=== PATIENT | male | born 1990 | race African-American/Black ===

== ENCOUNTER 2017-03-02 20:09 | Emergency (ER) | payer OTHER ==
[2017-03-02 21:00] LABS: URINE SOURCE CLEAN CATCH
[2017-03-02 21:06] LABS: URINE APPEARANCE CLEAR; URINE BILIRUBIN NEG (NEG); URINE BLOOD NEG (NEG); URINE COLOR DK YELLOW; URINE GLUCOSE NEG (NEG); URINE KETONE TRACE (NEG); URINE LEUKOCYTE ESTERASE 1+ (NEG); URINE NITRATE NEG (NEG); URINE PROTEIN NEG (NEG); URINE SPECIFIC GRAVITY 1.031 (1.003-1.035)
[2017-03-02 21:08] LABS: CULTURE INDICATED? YES; URINE BACTERIA AUWI NEG (NEGATIVE); URINE SQUAMOUS EPITHELIAL CELL NONE SEEN /[HPF]; UWBCS1 AUWI 25-50 (0-5)
[2017-03-02 21:19] LABS: U HYALINE CASTS AUWI 0-2 /[LPF]; URINE MUCUS PRESENT
[2017-03-05 01:27] LABS: CHLAMYDIA TRACH Not Detected (Not Detected); N GONOR Not Detected (Not Detected)
== END 2017-03-02 21:25 | disposition home or self-care (01) ==
LOC: CFTX 20:09 → CED 20:09 → CFTX 20:56
PROVIDERS: Physician Assistant
DX: N34.1 Nonspecific urethritis (principal); F17.200 Nicotine dependence, unspecified, uncomplicated; Z90.49 Acquired absence of other specified parts of digestive tract
CPT/HCPCS: 81003; 87086; 87491; 87591; 96372; 99283; J0696

== ENCOUNTER 2017-03-07 22:40 | Emergency (ER) | payer OTHER | END 2017-03-08 02:47 | disposition home or self-care (01) | LOC: CED 22:40 | DX: N34.2 Other urethritis (principal); F17.210 Nicotine dependence, cigarettes, uncomplicated; Z90.49 Acquired absence of other specified parts of digestive tract | CPT/HCPCS: 96372; 99283; J0696 ==